=== PATIENT | male | born 2000 | race Caucasian/White ===

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

== ENCOUNTER 2021-07-12 21:22 | Emergency (ER) | payer OTHER ==
[~2021-07-12] VITALS: Ht 180.3 cm; Wt 86.4 kg
[2021-07-12 21:48] VITALS: TEMP 98.5
[2021-07-12] MEDS ORDERED: ZOFRAN ODT4 MG PO (23:02)
[2021-07-12 23:20] VITALS: BP 128/77; PULSE 102
== END 2021-07-12 23:20 | disposition home or self-care (01) ==
LOC: COL.ER 21:22
DX: S06.0X0A Concussion without loss of consciousness, initial encounter (principal); Y04.8XXA Assault by other bodily force, initial encounter